=== PATIENT | male | born 1985 | race Caucasian/White ===

== ENCOUNTER 2024-05-17 11:12 | Emergency (ER) | payer OTHER, SELFPAY ==
[2024-05-17 11:18] VITALS: BP 141/101; PULSE 112; RESP 18; TEMP 36.2; O2SAT 100
[2024-05-17 11:28] VITALS: BP 147/99; PULSE 81; RESP 16; O2SAT 100
--- NOTE | 2024-05-17 12:38 | ED.GENADULT ---
HPI - General Adult General Chief complaint: Unspecified Stated complaint: fentanyl exposure Time Seen by Provider: 05/17/24 12:34 History of Present Illness HPI narrative: 38-year-old otherwise healthy [employer] presenting to the emergency department for potential exposure. Patient opened up a of lobe at the office and felt a weird taste in his mouth and small perfume. He felt slightly lightheaded and queasy. The male was from a known fentanyl user and he got concerned that he accidentally got exposed to something like fentanyl or other substances. He felt slightly lightheaded and his tongue going numb. He gave himself 2 doses of naloxone intranasally after about 5 minutes symptoms. Did not have any resolution or change in presented to the ER. Since his arrival here he states that he has been asymptomatic and denies any tongue numbness, facial numbness, syncope, shortness of breath, heart racing or any other concerns. He states he feels back to his normal self. Denies any other injuries or illnesses. Denies any powder exposure or any aerosol, liquid substances, just felt that he tasted something funny in the air when he opened the envelope. Related Data Allergies Allergy/AdvReac Type Severity Reaction Status Date / Time No Known Allergies Allergy Unverified 04/19/12 14:46 Review of Systems Review of Systems: As reviewed above in HPI Exam Narrative: GENERAL: [Well-appearing, well-nourished, and in no acute distress.] HEAD: [Normocephalic, atraumatic.] EYES: [PERRLA and EOMI.] ENT: Nares clear, no rhinorrhea or epistaxis. Mucous membranes moist. NECK: Supple. CHEST: [Clear to auscultation. No respiratory distress.] HEART: [Regular rate and rhythm]. No murmur heard. [Normal peripheral pulses.] ABDOMEN: [Soft, nondistended], [nontender], [No rigidity or guarding] EXTREMITIES: Normal range of motion. [No edema.] SKIN: Warm, dry, no rash. NEURO: [No focal deficits]. Alert and oriented [x3.] PSYCH: [Normal mood and affect.] Course Vital Signs Vital signs: Vital Signs Temperature 36.2 C L 05/17/24 11:18 Pulse Rate 112 H 05/17/24 11:18 Respiratory Rate 18 05/17/24 11:18 Blood Pressure 141/101 H 05/17/24 11:18 Pulse Oximetry 100 05/17/24 11:18 Oxygen Delivery Room Air 05/17/24 11:18 Temperature 36.2 C L 05/17/24 11:18 Pulse Rate 79 05/17/24 13:03 Respiratory Rate 16 05/17/24 13:03 Blood Pressure 140/92 H 05/17/24 13:03 Pulse Oximetry 100 05/17/24 13:03 Oxygen Delivery Room Air 05/17/24 11:18 Medical Decision Making MDM Narrative Medical decision making narrative: 38-year-old male presenting for potential exposure of his substance. He works as a precinct police lieutenant, open an envelope and felt a weird taste in the air and his mouth. Did not notice any aerosol or powder substances. Took 2 of Narcan and his station without any improvement in symptoms. Since his arrival to the emergency department he has been asymptomatic. He has been asymptomatic for last 90 minutes and denies any complaints at this time. His examination is reassuring. Blood pressure slightly elevated but without concern, no tachycardia, hypoxia, fever or tachypnea. He has no visible injuries or evidence of any toxidrome. There is potential that he was exposed to some sort of substance that was aerosolized within the package although he has no symptoms and passed a brief period of observation here in the emergency room without any symptoms. A urine drug screen was obtained although I informed him that a synthetic opiate would not be identified. Patient will be called with results. He will return to work at this time and is safe and stable for discharge. He was given return precautions. Medical Records Medical records reviewed: Yes I reviewed the external patient's medical records. Vital Signs Vital Signs: Vital Signs Temperature 36.2 C L 05/17/24 11:18 Pulse Rate 112 H 05/17/24 11:18 Respiratory Rate 18 05/17/24 11:18 Blood Pressure 141/101 H 05/17/24 11:18 Pulse Oximetry 100 05/17/24 11:18 Oxygen Delivery Room Air 05/17/24 11:18 Temperature 36.2 C L 05/17/24 11:18 Pulse Rate 79 05/17/24 13:03 Respiratory Rate 16 05/17/24 13:03 Blood Pressure 140/92 H 05/17/24 13:03 Pulse Oximetry 100 05/17/24 13:03 Oxygen Delivery Room Air 05/17/24 11:18 Lab Data Lab results reviewed: Yes I reviewed the patient's lab results. Labs: Lab Results 05/17/24 Range/Units 13:03 Urine Opiates Screen Pending Urine Methadone Screen Pending Ur Barbiturates Screen Pending Ur Phencyclidine Scrn Pending Ur Amphetamine Screen Pending U Benzodiazepines Scrn Pending Urine Cocaine Screen Pending U Cannabinoids Screen Pending Discharge Plan Discharge Clinical Impression: Employment-related drug testing, encounter for, Normal exam Patient Disposition: Home, Self-Care Condition: Stable Instructions: Antibiotic Form Additional Instructions: If you experience any relapse recurrence of recurrence of your unusual symptoms please return to the emergency department otherwise follow-up with your regular primary care provider. Patient Language: Hebrew Follow-up/Referrals: PHYSICIAN,IMPLEMENTATION COORDINATOR [Non-Staff] - Time of Disposition: 12:47
[2024-05-17 13:03] VITALS: BP 140/92; PULSE 79; RESP 16; O2SAT 100
[2024-05-17 13:26] LABS: Amphetamine Screen Urine Negative (Negative); Barbiturate Screen Urine Negative (Negative); Benzodiazepines Screen Urine Negative (Negative); Cannabinoid Screen Urine Negative (Negative); Cocaine Screen Urine Negative (Negative); Methadone Screen Urine Negative (Negative); Opiate Screen Urine Negative (Negative); Phencyclidine Screen Urine Negative (Negative)
== END 2024-05-17 13:05 | disposition home or self-care (01) ==
PROVIDERS: Emergency Provider Student in an Organized Health Care Education/Training Program; PCP Registered Nurse
DX: Z02.89 Encounter for other administrative examinations (principal); T75.89XA Other specified effects of external causes, initial encounter
CPT/HCPCS: 80307; 99283